=== PATIENT | male | born 1990 | race Caucasian/White ===

== ENCOUNTER 2018-10-10 10:59 | Emergency (ER) | payer SELFPAY ==
[~2018-10-10] VITALS: Ht 185.4 cm; Wt 71.5 kg
[2018-10-10 11:19] VITALS: BP 111/72
== END 2018-10-10 12:26 | disposition home or self-care (01) ==
LOC: ED 11:55
DX: B00.1 Herpesviral vesicular dermatitis (principal)
CPT/HCPCS: 99283

== ENCOUNTER 2018-10-30 15:10 | Emergency (ER) | payer SELFPAY ==
[~2018-10-30] VITALS: Ht 185.4 cm; Wt 75.4 kg
[2018-10-30 15:17] VITALS: BP 157/95
--- NOTE | 2018-10-30 15:23 | NUR ---
PT TO ROOM 20 FROM TRIAGE
[2018-10-30] MEDS ORDERED: PROPARACAINE OPHTH 0.5%, 15ML ONE (15:33)
[2018-10-30] MEDS ORDERED: FLUORESCEIN OPHTHALMIC 1 MG STRIP ONE (15:33)
== END 2018-10-30 16:05 | disposition home or self-care (01) ==
LOC: ED 15:59
DX: H10.022 Other mucopurulent conjunctivitis, left eye (principal); F17.200 Nicotine dependence, unspecified, uncomplicated
CPT/HCPCS: 99283